=== PATIENT | female | born 1960 | race Caucasian/White ===

== ENCOUNTER 2016-07-26 12:07 | Inpatient (IN) ==
[2016-07-26 15:59] LABS: MANUAL DIFF NEEDED? NO
[2016-07-26 16:10] LABS: INR 1.1; PROTIME 11.6 Seconds (9.2-11.7)
[2016-07-26 16:17] LABS: BASO% 0.5 % (0.0-0.8); EOS% 1.7 % (0.0-10.0); HEMATOCRIT 37.5 % (37.0-47.0); LYMPH# 1.22 X1000 (1.2-3.4); LYMPH% 20.4 % (20.5-51.1); MCH 30.6 PG (27-31); MCV 95.7 FL (81-99); MPV 8.8 FL (7.4-10.4); NEUT% 67.4 % (42.2-75.2); PLT 279 X1000 (130-400); RBC 3.92 XMIL (4.2-5.4)
[2016-07-26 16:32] LABS: AGAP 13; ALBUMIN 3.8 g/dL (3.5-5.0); ALKALINE PHOSPHATASE 167 U/L (32-104); BUN 7 mg/dL (8-22); CALCIUM 9.2 mg/dL (8.8-10.2); CHLORIDE 99 mmol/L (98-107); COSMO 275; GOT 14 U/L (10-30); GPT 18 U/L (10-36); SODIUM 139 mmol/L (136-145); TCO2 27 mmol/L (25-35); TOTAL BILIRUBIN 0.35 mg/dL (0.20-1.00); TOTAL PROTEIN 7.2 g/dL (6.3-8.3)
[2016-07-27 06:41] LABS: HEMATOCRIT 37.9 % (37.0-47.0); MCH 30.2 PG (27-31); MCHC 31.7 g/dL (33-37); MCV 95.2 FL (81-99); MPV 8.9 FL (7.4-10.4); RBC 3.98 XMIL (4.2-5.4)
[2016-07-27 07:18] LABS: AGAP 13; BUN 8 mg/dL (8-22); CALCIUM 8.6 mg/dL (8.8-10.2); CHLORIDE 102 mmol/L (98-107); COSMO 277; SODIUM 140 mmol/L (136-145); TCO2 25 mmol/L (25-35)
[2016-07-28 06:19] LABS: HEMATOCRIT 36.3 % (37.0-47.0); HEMOGLOBIN 11.4 g/dL (12.0-16.0); MCH 30.1 PG (27-31); MCHC 31.4 g/dL (33-37); MCV 95.8 FL (81-99); MPV 8.8 FL (7.4-10.4); RBC 3.79 XMIL (4.2-5.4)
[2016-07-28 07:13] LABS: AGAP 12; BUN 7 mg/dL (8-22); CALCIUM 8.9 mg/dL (8.8-10.2); CHLORIDE 101 mmol/L (98-107); COSMO 281; POTASSIUM 4.6 mmol/L (3.5-5.1); SODIUM 142 mmol/L (136-145); TCO2 29 mmol/L (25-35)
[2016-07-28 14:08] LABS: INR 1.12; PROTIME 11.9 Seconds (9.2-11.7)
[2016-07-29 06:27] LABS: HEMATOCRIT 36.3 % (37.0-47.0); HEMOGLOBIN 11.7 g/dL (12.0-16.0); MCH 30.3 PG (27-31); MCHC 32.2 g/dL (33-37); MPV 9.2 FL (7.4-10.4); RBC 3.86 XMIL (4.2-5.4)
[2016-07-29 07:15] LABS: AGAP 14; BUN 10 mg/dL (8-22); CALCIUM 8.9 mg/dL (8.8-10.2); CHLORIDE 101 mmol/L (98-107); COSMO 278; POTASSIUM 3.9 mmol/L (3.5-5.1); SODIUM 140 mmol/L (136-145); TCO2 25 mmol/L (25-35)
[2016-07-31 05:02] VITALS: BP 103/61
[2016-07-31 05:53] LABS: MANUAL DIFF NEEDED? NO
[2016-07-31 06:08] LABS: BASO% 0.5 % (0.0-0.8); EOS# 0.18 X1000 (0.0-0.7); EOS% 4.2 % (0.0-10.0); HEMATOCRIT 35.6 % (37.0-47.0); HEMOGLOBIN 11.6 g/dL (12.0-16.0); LYMPH# 1.46 X1000 (1.2-3.4); LYMPH% 34.4 % (20.5-51.1); MCH 30.1 PG (27-31); MCHC 32.6 g/dL (33-37); MCV 92.5 FL (81-99); MONO# 0.55 X1000 (0.11-0.59); NEUT% 47.9 % (42.2-75.2); PLT 267 X1000 (130-400); RBC 3.85 XMIL (4.2-5.4)
[2016-07-31 06:22] LABS: AGAP 11; BUN 8 mg/dL (8-22); CALCIUM 9.1 mg/dL (8.8-10.2); CHLORIDE 104 mmol/L (98-107); COSMO 281; POTASSIUM 4.1 mmol/L (3.5-5.1); SODIUM 142 mmol/L (136-145); TCO2 27 mmol/L (25-35)
== END 2016-07-31 13:41 | disposition home health service (06) ==
LOC: SUATTDRO 12:07 → DIRADM 12:07 → 4N 12:35
PROVIDERS: ADMIT Internal Medicine; ATTEND Internal Medicine